=== PATIENT | female | born 1950 | race Caucasian/White ===

== ENCOUNTER 2016-09-12 20:52 | Emergency (ER) | payer MEDICARE, OTHER ==
[2016-09-12 21:53] LABS: Hematocrit 29 % (35-47); Hemoglobin 9.7 g/dl (12.0-16.0); Mean Corpuscular HGB Conc 33 g/dl (31-36); Mean Corpuscular Hemoglobin 37 pg (27-31); Mean Platelet Volume 9 um3 (7.4-10.4); Red Blood Count 2.67 10^6/ul (4.0-5.4); White Blood Count 12.6 10^3/ul (3.5-10.8)
[2016-09-12 21:59] LABS: Comments Flag Yes; Mean Corpuscular Volume 110 fL (80-97)
[2016-09-12 22:00] LABS: Add Diff/Slide Review? Slide Review Added; Red Cell Distribution Width 25 % (10.5-15)
[2016-09-12 22:05] LABS: Ammonia 46 mol/L (16-53)
[2016-09-12 22:06] LABS: ALT 19 U/L (7-52); AST 57 U/L (13-39); Alkaline Phosphatase 93 U/L (34-104); Anion Gap 10 mmol/L (2-11); BUN/Creatinine Ratio 28.4 (8-20); Blood Urea Nitrogen 55 mg/dL (6-24); C Reactive Protein 81.54 mg/L (< 5.00); CO2 Carbon Dioxide 25 mmol/L (22-32); Calcium 9.2 mg/dL (8.6-10.3); Chloride 104 mmol/L (101-111); EGFR Non-African American 25.7 (>60); Globulin 3.9 g/dL (2-4); Glucose 104 mg/dL (70-100); Lipase < 10 U/L (11.0-82.0); Potassium 4.2 mmol/L (3.5-5.0); Sodium 139 mmol/L (133-145); Total Protein 6.9 g/dL (6.4-8.9)
[2016-09-12 22:10] LABS: B Type Natriuretic Peptide 138 pg/mL
[2016-09-12] MEDS: Ondansetron INJ* 2 MG/ML VIAL IV ONE ×2 (22:11→22:52)
--- NOTE | 2016-09-12 22:26 | RAD ---
Indication: Abdominal pain, vomiting. Liver cancer, liver failure. Hepatic encephalopathy. Chronic kidney disease. Comparison: August 21, 2016 abdomen radiograph and August 21, 2016 CT. Technique: Supine and LEFT lateral decubitus abdomen views. Report: Negative for free intraperitoneal air. Diffuse small bowel dilatation. Gas distention of the colon. Partial central displacement of the bowel loops consistent with presence of ascites. No suspicious calcifications or mass effect. Grossly clear lung bases. IMPRESSION: The constellation of findings is most consistent with ascites and ileus.
[2016-09-12] MEDS ORDERED: Ondansetron INJ* 2 MG/ML VIAL ONE (22:49)
[2016-09-12] MEDS ORDERED: Ondansetron ODT TAB* 4 MG PO ONE (22:51)
[2016-09-12] MEDS ORDERED: Ondansetron INJ* 2 MG/ML VIAL IV ONE (22:52)
--- NOTE | 2016-09-12 22:53 | ED ---
Isaura Ahn Anna, scribed for Rory Stern MD on 09/12/16 at 2144 . GI/ HPI - HPI Summary HPI Summary: Patient is a 66 y/o coming to [facility] presenting with repeated emesis that began five days ago. Patient additionally reports nausea and abdominal pain. She had a CT scan yesterday and an XR today that showed a SBO. She reports she is passing gas normally, most recently three hours ago. Her most recent BM was three hours ago. It was loose, which is baseline for her. Her history is significant for cirrhosis, caused by a now resolved Hepatitis C. - History of Current Complaint Chief Complaint: EDNauseaVomitDiarrh Time Seen by Provider: 09/12/16 21:40 Stated Complaint: ABD PAIN, VOMITING, Hx Obtained From: Patient, Family/Environmental Health Manager - Accompanied by daughter and son Pain Intensity: 4 - Additional Pertinent History Primary Care Physician: [id number] - Allergy/Home Medications Allergies/Adverse Reactions: Allergies Allergy/AdvReac Type Severity Reaction Status Date / Time Fluconazole Allergy Mild Rash Verified 08/18/16 15:10 Meropenem Allergy Mild Rash Verified 08/18/16 15:10 PMH/Surg Hx/FS Hx/Imm Hx Previously Healthy: No Endocrine/Hematology History: Reports: Hx Blood Transfusions, Hx Anemia, Hx Unexplained Bleeding - gi bleeds Denies: Hx Anticoagulant Therapy, Hx Bone Marrow Disease, Hx Diabetes, Hx Systemic Lupus Erythematosus, Hx Sickle Cell Disease, Hx Thyroid Disease Comment Only: Hx Blood Disorders - unknown, Other Endocrine/Hematological Disorders - unknown Cardiovascular History: Reports: Hx Hypertension, Other Cardiovascular Problems/ Disorders - heart murmur Denies: Hx Aneurysm, Hx Angina, Hx Angioplasty, Hx Auto Implanted Cardiovert Defib, Hx Cardiac Arrest, Hx Cardiomegaly, Hx Congestive Heart Failure, Hx Coronary Artery Disease, Hx Deep Vein Thrombosis, Hx Embolism, Hx Hypercholesterolemia, Hx Hypotension, Hx Myocardial Infarction, Hx Pacemaker/ICD , Hx Peripheral Vascular Disease, Hx Rheumatic Fever, Hx Syncope, Hx Valvular Heart Disease Comment Only: Hx Congenital Heart Disease - unknown Respiratory History: Reports: Hx Chronic Obstructive Pulmonary Disease (COPD), Hx Seasonal Allergies Denies: Hx Asthma, Hx Chronic Bronchitis, Hx Cystic Fibrosis, Hx Lung Cancer , Hx Pleural Effusion, Hx Pneumonia, Hx Pulmonary Edema, Hx Pulmonary Embolism, Hx Sleep Apnea, Other Respiratory Problems/Disorders GI History: Reports: Hx Cirrhosis, Hx Gastroesophageal Reflux Disease, Hx Gastrointestinal Bleed, Hx Jaundice, Other GI Disorders - Liver failure, liver cancer, liver mass, hepatic encephalopathy Denies: Hx Crohn's Disease, Hx Diverticulosis, Hx Gall Bladder Disease, Hx Hiatal Hernia, Hx Irritable Bowel, Hx Obstructive Bowel, Hx Ileostomy, Hx Pyloric Stenosis History: Reports: Hx Renal Disease - chronic kidney disease, cirrhosis, Other Problems/Disorders - chronic kidney disease, monitored due to liver problems Denies: Hx Acute Renal Failure, Hx Benign Prostatic Hyperplasia, Hx Chronic Renal Failure, Hx Dialysis, Hx Kidney Infection, Hx Kidney Stones Musculoskeletal History: Denies: Hx Arthritis, Hx Back Problems, Hx Bursitis Sensory History: Reports: Hx Contacts or Glasses Denies: Hx Cataracts, Hx Eye Injury, Hx Eye Prosthesis, Hx Glaucoma, Hx Legally Blind, Hx Macular Degeneration, Hx Vision Problem, Hx Deafness, Hx Hearing Aid, Hx Hearing Problem, Other Sensory Impairments Opthamlomology History: Reports: Hx Contacts or Glasses Denies: Hx Cataracts, Hx Eye Injury, Hx Eye Prosthesis, Hx Glaucoma, Hx Legally Blind, Hx Macular Degeneration, Hx Vision Problem, Other Sensory Impairments Neurological History: Denies: Hx Dementia, Hx Developmental Delay, Hx Headaches, Hx Migraine, Hx Nerve Disease, Hx Seizures, Hx Spinal Cord Injury, Hx Transient Ischemic Attacks (TIA), Other Neuro Impairments/Disorders Psychiatric History: Denies: Hx Anxiety, Hx Attention Deficit Hyperactivity Disorder, Hx Eating Disorder, Hx Depression, Hx Panic Disorder, Hx Post Traumatic Stress Disorder, Hx Inpatient Treatment, Hx Community Mental Health Tx, Hx Schizophrenia, Hx Bipolar Disorder, Hx Suicide Attempt, Hx of Violent Episodes Against Others, Hx Substance Abuse, Other Psychiatric Issues/Disorders - Cancer History Cancer Type, Location and Year: liver cancer, 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 [place] Denies: Hx Clostridium Difficile, Hx Human Immunodeficiency Virus (HIV), Hx of Known/Suspected MRSA, Hx Shingles, Hx Tuberculosis, Hx Known/Suspected VRSA, History Other Infectious Disease, Traveled Outside the [place] in Last 30 Days - Family History Known Family History: Positive: Other - lung CA (Father), breast CA (Mother) Family History: Lung cancer (Father), Breast Cancer (Mother) - Social History Occupation: Retired Alcohol Use: None Hx Substance Use: No Substance Use Type: Reports: None Hx Tobacco Use: Yes Smoking Status (MU): Former Smoker Type: Cigarettes Amount Used/How Often: quit about 2 years ago. Length of Time of Smoking/Using Tobacco: 40 Have You Smoked in the Last Year: No Review of Systems Constitutional: Negative Eyes: Negative ENT: Negative Cardiovascular: Negative Respiratory: Negative Positive: Abdominal Pain, Vomiting, Nausea Genitourinary: Negative Musculoskeletal: Negative Skin: Negative Neurological: Negative Psychological: Normal All Other Systems Reviewed And Are Negative: Yes Physical Exam - Summary Physical Exam Summary: VITAL SIGNS: Reviewed. GENERAL: Patient is a well developed fragile jaundice female who is lying comfortable in the stretcher. Patient is not in any acute respiratory distress. HEAD AND FACE: Normocephalic and atraumatic. EYES: PERRLA, EOMI x 2 EARS: Hearing grossly intact. Ear canals and tympanic membranes are WNL. MOUTH: Oropharynx within normal limits. NECK: Supple, trachea is midline, no adenopathy, no JVD. CHEST: Symmetric, no tenderness at palpation LUNGS: Clear to auscultation bilaterally. No wheezing or crackles. CVS: RRR,, S1 and S2 present, no murmurs or gallops appreciated. ABDOMEN: Soft, non-tender. Positive distention. Positive ascitis. Decreased bowel sounds. No abdominal bruit or pulsations. EXTREMITIES: FROM in all major joints, no edema, no cyanosis or clubbing. NEURO: Alert and oriented x 3. No acute neurological deficits. Speech is normal. SKIN: Dry and warm Triage Information Reviewed: Yes Vital Signs On Initial Exam: Initial Vitals Temp Pulse Resp BP Pulse Ox 100 F 94 16 102/47 92 09/12/16 21:03 09/12/16 21:03 09/12/16 21:03 09/12/16 21:03 09/12/16 21:03 Vital Signs Reviewed: Yes - Stefano Coma Scale Coma Scale Total: 15 Diagnostics - Vital Signs Vital Signs Temp Pulse Resp BP Pulse Ox 09/12/16 21:30 95 12 105/50 91 09/12/16 21:12 70 12 91 09/12/16 21:11 102/41 09/12/16 21:03 100 F 94 16 102/47 92 - Laboratory Lab Results: Lab Results 09/12/16 09/12/16 09/12/16 Range/Units 21:30 21:30 21:30 WBC 12.6 H (3.5-10.8) 10^3/ul RBC 2.67 L (4.0-5.4) 10^6/ul Hgb 9.7 L (12.0-16.0) g/dl Hct 29 L (35-47) % MCV 110 H (80-97) fL MCH 37 H (27-31) pg MCHC 33 (31-36) g/dl RDW 25 H (10.5-15) % Plt Count 160 (150-450) 10^3/ul MPV 9 (7.4-10.4) um3 Neut % (Auto) 84.5 H (38-83) % Lymph % (Auto) 4.2 L (25-47) % [place] % (Auto) 10.2 H (1-9) % Eos % (Auto) 0.8 (0-6) % Baso % (Auto) 0.3 (0-2) % Absolute Neuts (auto) 10.6 H (1.5-7.7) 10^3/ul Absolute Lymphs (auto) 0.5 L (1.0-4.8) 10^3/ul Absolute Monos (auto) 1.3 H (0-0.8) 10^3/ul Absolute Eos (auto) 0.1 (0-0.6) 10^3/ul Absolute Basos (auto) 0 (0-0.2) 10^3/ul Absolute Nucleated RBC 0 10^3/ul Nucleated RBC % 0 Sodium 139 (133-145) mmol/L Potassium 4.2 (3.5-5.0) mmol/L Chloride 104 (101-111) mmol/L Carbon Dioxide 25 (22-32) mmol/L Anion Gap 10 (2-11) mmol/L BUN 55 H (6-24) mg/dL Creatinine 1.94 H (0.51-0.95) mg/dL Est GFR ( Amer) 33.0 (>60) Est GFR (Non-Af Amer) 25.7 (>60) BUN/Creatinine Ratio 28.4 H (8-20) Glucose 104 H (70-100) mg/dL Lactic Acid (0.5-2.0) mmol/L Calcium 9.2 (8.6-10.3) mg/dL Total Bilirubin 6.30 H (0.2-1.0) mg/dL AST 57 H (13-39) U/L ALT 19 (7-52) U/L Alkaline Phosphatase 93 (34-104) U/L Ammonia 46 (16-53) mol/L C-Reactive Protein 81.54 H (< 5.00) mg/L B-Natriuretic Peptide 138 H ( - 100) pg/mL Total Protein 6.9 (6.4-8.9) g/dL Albumin 3.0 L (3.2-5.2) g/dL Globulin 3.9 (2-4) g/dL Albumin/Globulin Ratio 0.8 L (1-3) Lipase < 10 L (11.0-82.0) U/L 09/12/16 Range/Units 21:30 WBC (3.5-10.8) 10^3/ul RBC (4.0-5.4) 10^6/ul Hgb (12.0-16.0) g/dl Hct (35-47) % MCV (80-97) fL MCH (27-31) pg MCHC (31-36) g/dl RDW (10.5-15) % Plt Count (150-450) 10^3/ul MPV (7.4-10.4) um3 Neut % (Auto) (38-83) % Lymph % (Auto) (25-47) % [place] % (Auto) (1-9) % Eos % (Auto) (0-6) % Baso % (Auto) (0-2) % Absolute Neuts (auto) (1.5-7.7) 10^3/ul Absolute Lymphs (auto) (1.0-4.8) 10^3/ul Absolute Monos (auto) (0-0.8) 10^3/ul Absolute Eos (auto) (0-0.6) 10^3/ul Absolute Basos (auto) (0-0.2) 10^3/ul Absolute Nucleated RBC 10^3/ul Nucleated RBC % Sodium (133-145) mmol/L Potassium (3.5-5.0) mmol/L Chloride (101-111) mmol/L Carbon Dioxide (22-32) mmol/L Anion Gap (2-11) mmol/L BUN (6-24) mg/dL Creatinine (0.51-0.95) mg/dL Est GFR ( Amer) (>60) Est GFR (Non-Af Amer) (>60) BUN/Creatinine Ratio (8-20) Glucose (70-100) mg/dL Lactic Acid 2.4 H* (0.5-2.0) mmol/L Calcium (8.6-10.3) mg/dL Total Bilirubin (0.2-1.0) mg/dL AST (13-39) U/L ALT (7-52) U/L Alkaline Phosphatase (34-104) U/L Ammonia (16-53) mol/L C-Reactive Protein (< 5.00) mg/L B-Natriuretic Peptide ( - 100) pg/mL Total Protein (6.4-8.9) g/dL Albumin (3.2-5.2) g/dL Globulin (2-4) g/dL Albumin/Globulin Ratio (1-3) Lipase (11.0-82.0) U/L Result Diagrams: 09/12/16 21:30 09/12/16 21:30 Lab Statement: Any lab studies that have been ordered have been reviewed, and results considered in the medical decision making process. - Radiology Abd XR Xray Interpretation: Positive (See Comments) Radiology Interpretation Completed By: Radiologist - IMPRESSION: The constellation of findings is most consistent with ascites and ileus. - EKG 20:58 Cardiac Rate: NL - 99 bpm EKG Rhythm: Sinus Rhythm EKG Interpretation: No S/T elevation Re-Evaluation - Re-Evaluation First Eval Re-Evaluation Time: 22:47 Change: Improved - Pt is feeling better following Zofran. GIGU Course/Dx - Course Assessment/Plan: Patient is a 66 y/o coming to [facility] presenting with repeated emesis that began five days ago. Patient additionally reports nausea and abdominal pain. She had a CT scan yesterday and an XR today that showed a SBO. She reports she is passing gas normally, most recently three hours ago. Her most recent BM was three hours ago. It was loose, which is baseline for her. Her history is significant for cirrhosis, caused by a now resolved Hepatitis C. Abdominal x ray impression: Constellation of findings most consistent with ascites and Ileus. Blood work shows an increase in WBCs of 12.6. Chronic normocytic normochromic anemia, Chronic renal failure, Chronic increase of LFT s secondary to her liver cirrhosis. Basically all her labs are at her baseline. In the ED course she was hydrated and given Zofran for nausea and vomiting. After medication she is feeling better, and she is tolerating PO. She will be discharged to the longterm. She already has a prescription for Zofran. I discussed all the findings and test results with the patient and patient. Patient was instructed to return to the emergency room immediately if any of the symptoms return or worsens. They understand and agree. They were explained the possibility of an early abdominal pathology which was not detected at this time despite the physical exam and testing. They understand and agree. Abdominal exam before discharge: Soft,NT. No signs of distention. BS present. No rebound no guarding, and no masses palpated. Patient is alert and oriented. Patient is hemodynamically stable. Patient is to follow up with primary care physician in the next 24 hours. Patient and patients parents agree and understands. - Diagnoses Differential Diagnoses - Female: Bowel Obstruction, Constipation, Colitis, Metabolic Provider Diagnoses: Ileus, unspecified Discharge - Discharge Plan Condition: Stable Disposition: HOME Prescriptions: Ondansetron TAB* [Zofran Tab*] 4 mg PO Q6H PRN #12 tab PRN Reason: Vomiting Patient Education Materials: Ileus (ED) Referrals: Yohannes Manning MD [Primary Care Provider] - Additional Instructions: Follow up with primary care physician within 24 hours. Return to the emergency department for changing or worsening symptoms. The documentation as recorded by the Isaura patel Anna accurately reflects the service I personally performed and the decisions made by , Rory Stern MD.
[2016-09-12 23:14] VITALS: BP 103/71
== END 2016-09-12 23:16 | disposition home or self-care (01) ==
LOC: ED 20:52
DX: K56.7 Ileus, unspecified (principal); R11.2 Nausea with vomiting, unspecified; R10.9 Unspecified abdominal pain; Z87.891 Personal history of nicotine dependence
CPT/HCPCS: 36415; 74020; 80053; 82140; 83605; 83690; 83880; 85025; 86140; 93005; 96374; 96376; 99284; A9270-GY; J2405